=== PATIENT | female | born 1940 | race Caucasian/White ===

== ENCOUNTER 2016-11-21 10:23 | Day surgery (SDC) | payer MEDICARE, BC ==
[~2016-11-21] VITALS: Ht 167.6 cm; Wt 77.1 kg
[~2016-11-21 10:23] MED LIST: ALIGN4 MG PO; AMARYL 4MG. TAB4 MG PO; BUSPIRONE HCL10 MG PO; CENTRUM SILVER1 TA2 PO; HYDROCODONE BIT1 T45 PO; INSULIN GL100 UNITS/ SC; ISOSORBIDE DINI10 MG NG; LEVEMIR100 UNITS/ SC; LOSARTAN POTASS50 MG PO; METFORMIN 500M500 MG PO; NEURONTIN 300M300 MG PO; NORCO 325 MG-51 TAB PO; OCUVITE LUTEIN1 CA1 PO; OMEPRAZOLE20 MG PO; OXYBUTYNIN5 MG PO; PRAVASTATIN SOD80 MG PO; PROPRANOLOL HCL20 MG PO; TYLENOL ES500 M1 PO; VITAMIN D1 TAB PO
[2016-11-21 10:24] VITALS: BP 131/69; BP 198/79
[2016-11-21 10:39] VITALS: BP 131/69
[2016-11-21 11:02] VITALS: BP 131/69
[2016-11-21 11:03] VITALS: BP 131/69
[2016-11-21 11:09] VITALS: BP 174/71
--- NOTE | 2016-11-21 11:18 | Procedure Note ---
Procedure detail Date of procedure: 11/21/16 Anesthesiologist: Prudencio bass CRNA Complications: None Pre-procedure diagnosis: RIGHT sacroiliitis Post-procedure diagnosis: Same. Indications for procedure: Very pleasant 76-year-old white female we've been treating her pain clinic for chronic low back pain in the past. She presented to us last week with complaint of RIGHT SI joint pain. She has extreme point tender as well as the RIGHT SI joint. Patient describes the pain as constant, sharp, stabbing. She rates the pain 8/10. Patient also reports pain intensifies when standing from a sitting position. She presents today for RIGHT SI joint injection. Procedure detail: Procedure: Right sacroliliac joint injection under fluoroscopy Informed consent was obtained and the risk and benefits of the procedure were explained to the patient.~ The patient was taken to the procedure room and noninvasive monitors were placed including noninvasive blood pressure cuff and pulse oximeter.~ The patient was placed prone on the procedure table.~ The~ right hip was cleansed using Betadine as a cleansing solution.~ C-arm fluorosocpy was used to view the right SI joint.~ The skin and subcutaneous tissues were anesthetized using Lidocaine 1.5% and a 25-gauge needle.~ After this, a 22-gauge spinal needle was inserted under fluoroscopic guidance into the inferior aspect of the right SI joint.~ Omnipaque dye was injected and a good spread was seen throughout the joint.~ After this, approximately 5 mL of bupivacaine 0.25% and Depo-Medrol 40 mg was incrementally injected into the sacroiliac joint.~ The patient tolerated the procedure well with no complications.~ The patient was observed in the Pain Clinic, then discharged home neurologically intact.~ Plan and disposition: Patient was reevaluated 15 minutes postprocedure. Patient reports 100 percent improvement terms her RIGHT hip pain. She'll follow-up with us in the pain clinic for further evaluation. at [id number]
[2016-12-12] MEDS ORDERED: [UNRECOGNIZED DRUG - OTHER] PO (11:01)
== END 2016-11-21 11:09 | disposition home or self-care (01) ==
LOC: PM 10:23
PROC: 3E0U33Z Introduction of Anti-inflammatory into Joints, Percutaneous Approach (ICD-10-PCS; principal; 2016-11-21)
PROC: 3E0U3BZ Introduction of Anesthetic Agent into Joints, Percutaneous Approach (ICD-10-PCS; 2016-11-21)
DX: M46.1 Sacroiliitis, not elsewhere classified (principal)
CPT/HCPCS: G0260; J1030

== ENCOUNTER → 2017-08-07 | Outpatient (CLI) | payer MEDICARE, BC ==
[~2017-08-07] MED LIST changes: +[UNRECOGNIZED DRUG - OTHER] PO
--- NOTE | 2017-08-07 16:29 | RADIOLOGY REPORT PS360 ---
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 No fracture or dislocation. No lytic or blastic change. Nonspecific soft tissue calcifications are present along the right soft tissues of the hip. Central pelvic calcification is also noted and may represent fibroid calcification.. 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
== END ==
LOC: RAD 16:00
DX: M25.551 Pain in right hip (principal)